=== PATIENT | male | born 1935 | race Caucasian/White ===

== ENCOUNTER 2023-11-04 11:34 | Emergency (ER) | payer MEDICARE, MEDICAID ==
[~2023-11-04] VITALS: Ht 182.9 cm; Wt 68.0 kg
[2023-11-04] MEDS ORDERED: IV NORMAL SALINE 1000 ML BAG IV ONE (11:45)
[2023-11-04] MEDS ORDERED: SIMV10TA98 PO (11:52)
[2023-11-04] MEDS ORDERED: VENE100T PO (11:52)
[2023-11-04] MEDS ORDERED: AMIT25TA9 PO (11:52)
[2023-11-04] MEDS ORDERED: AZIT250T13 PO (11:52)
[2023-11-04] MEDS ORDERED: CHOL100062 PO (11:52)
[2023-11-04] MEDS ORDERED: OSEL75CA18 PO (11:52)
[2023-11-04] MEDS ORDERED: FOLI1TAB27 PO (11:52)
[2023-11-04 11:53] LABS: BASOPHILS % (AUTO) 0.2 % (0.0-2.0); EOSINOPHILS % (AUTO) 0.1 % (0.0-7.0); HEMATOCRIT 36.5 % (36.7-47.1); HEMOGLOBIN 12.3 g/dL (12.5-16.3); LYMPHOCYTES # (AUTO) 0.3 K/uL (0.8-4.8); LYMPHOCYTES % (AUTO) 12.4 % (20.5-51.5); MEAN CORPUSCULAR HEMOGLOBIN 30.5 uug (23.8-33.4); MEAN CORPUSCULAR HGB CONC 34 g/dL (32.5-36.3); MEAN CORPUSCULAR VOLUME 90.6 fL (73.0-96.2); MONOCYTES # (AUTO) 0.6 K/uL (0.1-1.30); MONOCYTES % (AUTO) 24.3 % (0.0-11.0); NEUTROPHILS # (AUTO) 1.5 K/uL (1.8-8.9); PLATELET COUNT (AUTO) 113 K/uL (152-348); RED BLOOD CELL COUNT(AUTO) 4.03 MIL/uL (4.06-5.63); RED CELL DISTRIBUTION WIDTH 13.7 % (12.1-16.2); WHITE BLOOD COUNT (AUTO) 2.3 K/uL (3.6-10.2)
[2023-11-04 12:13] LABS: CALCIUM 8.6 mg/dL (8.5-10.1); CARBON DIOXIDE 26 mmol/L (21-32); CHLORIDE 103 mmol/L (98-107); CREATININE 1.1 mg/dL (0.6-1.3); DIFFERENTIAL COMMENT 1; GLUCOSE 144 mg/dL (74-106); POTASSIUM 3.8 mmol/L (3.5-5.1); SODIUM SERUM 137 mmol/L (136-145); UREA NITROGEN, BLOOD 22 mg/dL (7-18)
[2023-11-04 12:22] LABS: ALANINE AMINOTRANSFERASE 40 U/L (16-63); ALBUMIN 3.4 g/dL (3.4-5.0); ALKALINE PHOSPHATASE 163 U/L (50-136); ASPARTATE AMINOTRANSFERASE 41 U/L (15-37); BILIRUBIN,DIRECT 0.3 mg/dL (0.0-0.2); BILIRUBIN,TOTAL 0.9 mg/dL (0.2-1.0); TOTAL PROTEIN, SERUM 6.6 g/dL (6.4-8.2)
[2023-11-04 13:19] VITALS: BP 142/78; O2SAT 96
[2023-11-04 16:13] LABS: BAND % (MANUAL) 5 % (0-10); LYMPHOCYTES % (MANUAL) 14 % (20-40); MONOCYTES % (MANUAL) 21 % (2-10); NEUTROPHILS % (MANUAL) 60 % (42-75)
[2023-11-04 16:14] LABS: ANISOCYTOSIS 1+; PLATELET ESTIMATE DECREASED
== END 2023-11-04 13:20 | disposition home or self-care (01) ==
LOC: ER 11:34
DX: R10.9 Unspecified abdominal pain (principal); R55 Syncope and collapse; R19.7 Diarrhea, unspecified; E86.0 Dehydration; R73.9 Hyperglycemia, unspecified; R74.01 Elevation of levels of liver transaminase levels; D61.818 Other pancytopenia; E78.5 Hyperlipidemia, unspecified; Z79.899 Other long term (current) drug therapy
CPT/HCPCS: 99285; 96360; 70450; 71045; 80076; 80048; 83690; 85025; 84484; 93005; 85007; J7040; 70030-TC; A4606; A4663